=== PATIENT | male | born 1960 | race Caucasian/White ===

== ENCOUNTER 2017-02-26 09:25 | Day surgery (SDC) | payer BC ==
[2017-02-24 08:22] LABS: HEMATOCRIT 42.8 % (40.0-51.0); HEMOGLOBIN 15.1 g/dL (13.6-17.8)
--- NOTE | ~2017-02-26 | OP ---
Record Of Operation [facility] [address] [place]. [address] NAME: HERACLIO STEWART : 60 STATUS : REG [facility] [place] PAT#: [id number] AGE: 56 ADM/REG DATE : 02/26/17 MR#: [id number] REPORT SERV DATE: 02/26/17 DICTATED BY: SONIA EID DATE: 02/26/17 REPORT STATUS : Draft TRANSCRIBED BY: MODSue DATE: 02/26/17 DATE OF PROCEDURE: 02/26/2017 PREOPERATIVE DIAGNOSIS: Umbilical hernia. POSTOPERATIVE DIAGNOSIS: Umbilical hernia. PROCEDURE: Open umbilical hernia repair that was located in the midline. It was incarcerated. No mesh was used. ANESTHESIA: General endotracheal anesthesia with local anesthetic administered by the surgeon. ESTIMATED BLOOD LOSS: 10 mL. IV FLUIDS: 1 L. DRAINS: None. COMPLICATIONS: None apparent. SPECIMEN: Fat and hernia sac. INDICATIONS: Mr. Stewart is a 56-year-old man who was evaluated in the office by Dr. Eid, secondary to an umbilical hernia that was symptomatic. He was offered repair. Preoperatively, benefits, alternatives, and risks, including bleeding, infection, risk of recurrence and risk of general endotracheal anesthesia including, but not limited to, heart attack, stroke, and were all described in detail to the patient preoperatively. After having all questions answered, the patient voiced understanding these risks and desired to proceed with surgery. PROCEDURE IN DETAIL: Patient was identified preoperatively as Heraclio Stewart and it was determined that the appropriately signed documents including history and physical and operative permit were secured on the chart. He was taken to the operating room and placed supine on the operating room table where general endotracheal anesthesia was induced by the Anesthesia Service who monitored the patient throughout the procedure. The abdomen was prepped and draped sterilely and an appropriate time-out procedure where in the patient, procedure site, positioning, allergies to equipment, and administration of antibiotics were all verified prior to beginning. An incision was made with a knife in the infraumbilical location in a semicircular fashion. This was then dissected down to the hernia sac with electrocautery. A Rachelle clamp was used to encircle the hernia and the hernia sac was taken off the umbilical skin sharply with a knife. Fat-containing hernia was then amputated and suture-ligated and was allowed to retract back into the abdomen. Hemostasis was ensured. The fascial edges were then defined and cleaned off adhesions, and Nurolon suture was used in an interrupted fashion to reapproximate the tissues. Good tissue approximation was noted. The defect was then irrigated and suctioned free of irrigant. The deepest portion Record Of Operation [facility] [id number] [facility] [place]. [address] NAME: HERACLIO STEWART : 60 STATUS : REG [facility] [place] PAT#: [id number] AGE: 56 ADM/REG DATE : 02/26/17 MR#: [id number] REPORT SERV DATE: 02/26/17 DICTATED BY: SONIA EID DATE: 02/26/17 REPORT STATUS : Draft TRANSCRIBED BY: ALIS DATE: 02/26/17 of the umbilical well was then tacked to the fascia. Vicryl suture was then used in a deep dermal fashion to reapproximate the wound. The skin was reapproximated with Monocryl in a subcuticular fashion. Sterile dressing was applied. This ended the procedure. Sedation was stopped. The patient was allowed to awaken, extubated in the operating room, and taken to the postanesthesia care unit in good condition after having tolerated the procedure well. All counts of needles, sponges, and instruments were correct at the end of the case. Dr. Eid was present and scrubbed for the entirety of the procedure. No intraoperative complications were noted. DICTATED BY: MD AMANDA Matt/ALIS Sonia Eid M.D. / [id number] CC: Mai Gibbons M.D.
[~2017-02-26 09:25] MED LIST: *DENIES
== END 2017-02-26 18:29 | disposition home or self-care (01) ==
LOC: SDC 09:25
PROVIDERS: Specialist
PROC: 0WQF0ZZ Repair Abdominal Wall, Open Approach (ICD-10-PCS; principal; 2017-02-26 10:45)
DX: K42.9 Umbilical hernia without obstruction or gangrene (principal)
CPT/HCPCS: 85014; 85018; 87641; 88302; 93005; A9270-GY; J0690; J1885; J2250; J2270; J2405; J2550; J2710; J3010